=== PATIENT | female | born 1985 | race Caucasian/White ===

== ENCOUNTER 2023-06-15 02:22 | Day surgery (SDC) | payer OTHER, SELFPAY ==
[2023-06-11 09:36] VITALS: BMI 23.8
--- NOTE | 2023-06-11 09:39 | PC.NURSE ---
Report to the Outpatient Waiting Room, entrance under the green pavilion located off [facility], at time 0600 on date 06/15/23. Planned Procedure Time: 0730. Time changes happen often and if your time is changed the preop area will call you the afternoon before. - You and your visitor will be asked to self-screen and do not enter if you have any COVID symptoms. - A mask is optional within the hospital at this time. Patients may have clear liquids (water, carbonated beverages, clear teas, apple juice) until 3 hours prior to surgery with a maximum of 20 ounces. - No food from midnight until time of surgery Take the following medications with a SIP of water the morning of surgery: NONE DO NOT STOP ANY OF YOUR OTHER PRESCRIPTION MEDICATIONS PRIOR TO SURGERY ?EXCEPT THE FOLLOWING Medications to discontinue per physician: N/A Date to take last dose: N/A Please no make-up, nail slovak, hairspray, perfume, deodorant, or body powder the day of surgery. No jewelry (including any body piercings) or valuables the day of surgery, leave them at home. Please take a shower or bath the night before, or the morning of, surgery with an antibacterial soap. Wear comfortable, loose fitting clothing. - Jewelry must be removed prior to entering the operating room. Rings and piercings that are not removed may be cut off. - The hospital will not accept responsibility for valuables. - Please leave all valuables, including medications, at home the day of surgery. If you are going home after surgery, a licensed gas truck driver must drive you home. - NO public transportation without another adult if you receive anesthesia. - We recommend that an adult stay with you for 24 hours following discharge. - We also recommend that you do not drive, make important decision, drink alcoholic beverages, or take any drugs that were not prescribed by your health care provider for at least 24 hours after your discharge time. Follow any additional instructions given to you from your surgeon. If you or anyone in your household have experienced Covid symptoms in the past week, please notify your surgeon or the nurse liaison at the phone number below for possible testing. Telephone instructions given to LORI JAMESON and asked if any additional questions and then verbalized understanding. Patient advised to call surgeon office or pre surgery nurse liaison [phone] if any additional questions.
--- NOTE | 2023-06-14 20:03 | PM.IMHP ---
H&P: HPI History of Present Illness Date/Time: 06/14/23 20:03 Chief Complaint: undesired fertility Narrative: She is a 38 y/o P1 currently using IUD for contraception. She has satisfied parity and request permanent sterilization. She does not want to continue using the IUD. She declines all other nonpermanent forms of contraception. Review of Systems Review of Systems: All systems reviewed & are unremarkable except as noted in HPI and below Cardiovascular: Cardiovascular: Reports no additional cardiovascular complaints, Denies chest pain and Denies dyspnea Respiratory: Respiratory: Reports no additional respiratory complaints and Denies dyspnea Gastrointestinal: Gastrointestinal: Reports abdominal pain, Denies change in bowel habits, Denies diarrhea, Denies nausea and Denies vomiting Genitourinary: Genitourinary: Reports pelvic pain Musculoskeletal: Musculoskeletal: Reports back pain Integumentary/Breasts: Skin/Breast: Reports system reviewed and no additional complaints, except as docu Neurologic: Reports system reviewed and no additional complaints, except as documented PMFSH Social History Social History Smoking packs per day: 0.5 Smoking cigarettes per day: 10.0 Years smoked: 15 Smoking pack-years: 7.50 Smoking status: Current every day smoker Tobacco type: cigarettes Alcohol intake: never Substance use: never Substance use type: does not use Lack of Transportation: No Lack of Food: Never True Current Housing: I Have Housing Concerned About Future Housing: No Difficulty Paying Gas/Electric Bills: No Difficulty Paying for Meds: No Currently Unemployed: No Education: High School Diploma/GED Difficulty w/ Childcare or Family Care: No Living arrangements: with family Occupation/Education: occupation Gender identity (if verbalized by the patient): Female Sexual Orientation (if Verbalized by the Patient): Straight or Heterosexual Spiritual care concerns: No Meds Home Medications and Allergies Home Medications Medication Instructions Recorded Confirmed Type levonorgestrel 21 mcg/24 hours (8 1 device intrauterine ONCE 04/05/23 06/11/23 History yrs) 52 mg intrauterine device (Mirena) Allergies Allergy/AdvReac Type Severity Reaction Status Date / Time No Known Allergies Allergy Mild Verified 06/11/23 09:35 Exam Const: Orientation/consciousness: oriented to person and oriented to place HENMT: Head: normal to inspection Eyes: General: appearance normal, both eyes and all related structures Resp: Effort & Inspection: normal respiratory effort Auscultation: clear to auscultation bilaterally Cardio: Rate: regular rate Rhythm: regular rhythm GI: Inspection: normal to inspection GI Palp: No Rebound tenderness present Neuro: General: oriented to person and oriented to place Cognition (Neuro): normal cognition Extrem: General: normal to inspection Psych: Appearance: grossly normal and well kempt Assessment and Plan Assessment and plan (1) Sterilization: Code(s): Z30.2 - Encounter for sterilization Status: Acute Assessment and Plan: Will proceed with laparoscopic bilateral salpingectomy.
[2023-06-15] VITALS (9 sets, daily range): BP systolic 88–102; BP diastolic 52–71; PULSE 49–81; RESP 12–18; TEMP 36.2–36.6; O2SAT 99–100
[2023-06-15] MEDS: KETOROLAC 15 MG/ML VIAL (*BKC) IV PUSH (06:45)
[2023-06-15] MEDS: LACTATED RINGERS 1,000 ML 30 ML IV CONT ×2 (06:45→08:41)
[2023-06-15] MEDS: ACETAMINOPHEN 500 MG TABLET 1000 MG PO (06:45)
--- NOTE | 2023-06-15 07:09 | P.PNAN_ITS ---
Anes - Initial Pre Proc Eval Procedure: Operation Date: 06/15/23 07:30 Proposed Procedures p Laparoscopic Bilateral Salpingectomy with Intrauterine Device Removal - Tunde Miles MD Date/Time: 06/15/23 07:09 Surgeon: Tunde Miles MD Pre Op Diagnosis: Desire Sterilization Patient Data Age: 38 Gender: F Height: 1.68 m Weight: 67.15 kg Allergies Allergy/AdvReac Type Severity Reaction Status Date / Time No Known Allergies Allergy Mild Verified 06/11/23 09:35 Home Medications Medication Instructions Recorded Confirmed Type levonorgestrel 21 mcg/24 hours (8 1 device intrauterine ONCE 04/05/23 06/11/23 History yrs) 52 mg intrauterine device (Mirena) Patient hx anesthesia problems: none Family hx anesthesia problems: none Results Review: All pre-operative results and documents have been reviewed as part of the pre- operative evaluation. [facility] Social History Social History Smoking packs per day: 0.5 Smoking cigarettes per day: 10.0 Years smoked: 15 Smoking pack-years: 7.50 Smoking status: Current every day smoker Tobacco type: cigarettes Alcohol intake: never Substance use: never Substance use type: does not use Lack of Transportation: No Lack of Food: Never True Current Housing: I Have Housing Concerned About Future Housing: No Difficulty Paying Gas/Electric Bills: No Difficulty Paying for Meds: No Currently Unemployed: No Education: High School Diploma/GED Difficulty w/ Childcare or Family Care: No Living arrangements: with family Occupation/Education: occupation Gender identity (if verbalized by the patient): Female Sexual Orientation (if Verbalized by the Patient): Straight or Heterosexual Spiritual care concerns: No Anes - Eval Final PreProcedure Day of Procedure 06/15/23 07:09 Patient weight: normal Heart: regular rate and rhythm Lungs: clear to auscultation Airway: Mallampati scale class II Neurological: alert and oriented Last oral intake: >/= 8 hours ASA classification: II Emergent: no Anesthetic plan: proceed Anesthesia type and monitoring: general ETT and standard monitoring Results Review: All pre-operative results and documents have been reviewed as part of the pre- operative evaluation. Informed Consent: The patient's anesthetic plan and its attendant risks and benefits were discussed with the patient/family/POA. Questions were solicited and answers provided to the satisfaction of the patient/family/POA.
--- NOTE | 2023-06-15 07:22 | WPDHPUPDATE1 ---
History and Physical Update Update Date/Time: 06/15/23 07:22 History and Physical has been reviewed, including an updated exam of the patient. There are NO changes in the patient's condition. Risks, benefits, and alternatives have been discussed and questions answered. Patient agrees to proceed with procedure.
--- NOTE | 2023-06-15 07:42 | SUR.PREOP ---
IDPA FORM HAS NOT BEEN FILLED OUT CORRECTLY. DELAY IN PROGRESS WE WAIT ON DR TAFOYA TO RETURN TO AREA
[2023-06-15] MEDS: BUPivacaine HCL 0.5% PF 30 ML VIAL 12 ML INFILTRATE (08:06)
--- NOTE | 2023-06-15 08:57 | W.PM.PROC2 ---
Procedure Note - Detailed Date of Procedure 06/15/23 Pre-op Diagnosis Desire Sterilization Post-op Diagnosis Same Procedure Performed 1. laparoscopic bilateral salpingectomy 2. IUD removal Surgeon Tunde Miles MD Anesthesia General Indications Requests permanent sterilization request IUD removal Findings Normal uterus and fallopian tubes and ovaries normal liver edge normal posterior cul-de-sac normal pelvis Description of Procedure After informed consent was obtained patient was taken to the operating room and general endotracheal anesthesia was administered. She was placed in low lithotomy need prep prepped sterile fashion. Attention was turned to the vagina speculum inserted single-tooth tenaculum placed on anterior lip of the cervix. The Mirena IUD was removed with ring forceps intact. No abnormalities noted. IUD was discarded. And acorn uterine manipulator placed into the cervical canal. The speculum was removed. Bladder was drained with a straight cath of 200 cc of yellow urine. Attention was then turned to the abdomen. With sterile gloves a vertical incision was made at the umbilicus and a Veress needle was inserted into the abdomen confirmation into the abdomen obtained with normal peritoneal pressures. A pneumoperitoneum of 15 mm per mercury was obtained. The 5 mm port was inserted under laparoscopic visualization. Patient was placed in Trendelenburg position. Attention was turned to the left side of the abdomen and a 5 mm port was inserted under laparoscopic visualization. Attention was turned to the right side of the abdomen and a 5 mm port was inserted under laparoscopic visualization. The pelvic organs were visualized. Using the LigaSure the right fallopian tube was excised to near the entrance to the uterus. This was removed through the port. Attention was then turned to the left fallopian tube which was grabbed at the distal end. There were mild adhesions to the ovary. The fallopian tube was cauterized from the mesial salpinx to the ampullary region of the fallopian tube. The fallopian tube was removed through the 5 mm port. Hemostasis was noted at both sites. Patient was taken out of Trendelenburg position the pneumoperitoneum was released and the skin incisions were closed in a subcuticular fashion with 4 O Vicryl. Estimated Blood Loss -5.0 Urine Output 200 Drains No Packing No Pathology Yes (Right and left fallopian tube segment) Complications No immediate complications Condition Stable Disposition Same day [facility] Billing Surgery - Charge Forward: Surgery Billing
== END 2023-06-15 10:29 | disposition home or self-care (01) ==
PROVIDERS: PCP Internal Medicine Infectious Disease; Visit Provider Obstetrics & Gynecology
PROC: (CPT 49320; principal; 2023-06-15 07:30)
DX: Z30.2 Encounter for sterilization (principal); Z30.432 Encounter for removal of intrauterine contraceptive device; F17.210 Nicotine dependence, cigarettes, uncomplicated
CPT/HCPCS: 58661; 58301; 88302; A9270; J0330; J1100; J1885; J2250; J2405; J2704; J3010; J7030; J7120

== ENCOUNTER 2023-07-26 14:08 | Emergency (ER) | payer OTHER, SELFPAY ==
[2023-07-26] VITALS (9 sets, daily range): BP systolic 104–117; BP diastolic 66–85; PULSE 58–80; RESP 10–18; TEMP 36.2; O2SAT 99–100
--- NOTE | ~2023-07-26 | XR_ITS ---
EXAMINATION: XR chest 2V 07/26/2023 14:46 INDICATION: Shortness of breath PROCEDURE: 2 view chest COMPARISON: No prior studies for comparison. FINDINGS: The lungs are clear. The cardiomediastinal silhouette is within normal limits. There are no pleural effusions. There is no pneumothorax suspected. IMPRESSION: 1: NO ACUTE CARDIOPULMONARY DISEASE. Reviewed, dictated and finalized at location A.
--- NOTE | ~2023-07-26 | CT_ITS ---
EXAMINATION: CTA chest PE protocol DATE: 07/26/2023 15:20 CDT INDICATION: Chest tightness and shortness of breath. Recent surgery. TECHNIQUE: Computed tomographic angiography (CTA) of the chest was performed with 100 mL Omnipaque-35 0 intravenous contrast. The dose-length product was 194.63 mGy-cm. Maximum intensity projection 3D-re constructions of the aorta and other arteries were constructed by the technologist on a separate work station. Automated exposure control and iterative reconstruction technique were employed. COMPARISON: None. FINDINGS: Heart size normal. No significant pleural or pericardial effusion. Study is technically millie quate without evidence for pulmonary embolism. No thoracic lymphadenopathy. No evidence for aortic an eurysm. Upper abdomen is unremarkable. No focal airspace disease. No endobronchial lesions. No pneumo thorax. No acute bone or joint abnormality. IMPRESSION: 1. No acute cardiopulmonary disease. Reviewed, dictated and finalized at location A.
--- NOTE | 2023-07-26 14:13 | ECG_ITS ---
Measurements Intervals [place] Rate: 74 P: 75 MI: 177 QRS: 74 QRSD: 88 T: 51 QT: 372 QTc: 414 Interpretive Statements SINUS RHYTHM WITH SINUS ARRHYTHMIA BASELINE ARTIFACT- III, AVL NORMAL ECG NO PREVIOUS ECG AVAILABLE FOR COMPARISON Electronically Signed On 07-26-2023 14:29:25 CDT by Hemanth Palacios D.O.
--- NOTE | 2023-07-26 14:36 | ED.SOB ---
HPI - SOB/Dyspnea General Chief Complaint: Shortness of Breath/Dyspnea Stated Complaint: chest tightness, SOB Time Seen by Provider: 07/26/23 14:26 History of Present Illness HPI Narrative: 38-year-old female reports for evaluation for chest tightness and shortness of breath for the past several weeks. Patient states she has had a cough for the past few months. States she had a tubal ligation performed by Dr. Mcmillan on 06/15/2023, and about a week later developed chest tightness and shortness of breath. She states that at times her cough is productive and describes the sputum as stringy and bubbly . She states that her shortness of breath sometimes is worsened when she lays flat. She denies hemoptysis, chest pain, radiation of pain, syncope, abdominal pain, nausea or vomiting, diarrhea, lower extremity edema, history of VTE. Denies history of asthma or diagnosed COPD but does states she has been smoking approximately half a pack a day since she was a teenager. Related Data Allergies Allergy/AdvReac Type Severity Reaction Status Date / Time No Known Allergies Allergy Mild Verified 07/26/23 14:20 Review of Systems Review of Systems: CONSTITUTIONAL: Denies fever, chills EYES: Denies visual changes, redness, or discharge. ENT: Denies rhinorrhea, congestion, sore throat, or otalgia. CARDIOVASCULAR: See HPI RESPIRATORY: See HPI GASTROINTESTINAL: Denies abdominal pain, nausea, vomiting, or diarrhea. GENITOURINARY: Denies dysuria or hematuria. SKIN: Denies rash or itching. MUSCULOSKELETAL: Denies back pain, joint pain, or myalgia. NEUROLOGIC: Denies headache, numbness, dizziness, or weakness. PSYCHIATRIC: Denies anxiety or depression. [facility] Surgical History Surgical History H/O bilateral salpingectomy (~06/15/23) Lap Bilateral salpingectomy and IUD removal. Dr Miles Social History Social History Smoking packs per day: 0.5 Smoking cigarettes per day: 10.0 Years smoked: 15 Smoking pack-years: 7.50 Smoking status: Current every day smoker Tobacco type: cigarettes Alcohol intake: never Substance use: never Substance use type: does not use Lack of Transportation: No Lack of Food: Never True Current Housing: I Have Housing Concerned About Future Housing: No Difficulty Paying Gas/Electric Bills: No Difficulty Paying for Meds: No Currently Unemployed: No Education: High School Diploma/GED Difficulty w/ Childcare or Family Care: No Living arrangements: with family Occupation/Education: occupation Gender identity (if verbalized by the patient): Female Sexual Orientation (if Verbalized by the Patient): Straight or Heterosexual Spiritual care concerns: No Exam Narrative: GENERAL: Well-appearing, in no acute distress. Patient resting comfortably in exam bed. She is pleasant and conversational. HEAD: Normocephalic EYES: PERRLA ENT: Nares clear. Mucous membranes moist. Oropharynx without tonsillar hypertrophy exudate or other lesions. NECK: Supple. CHEST: No respiratory distress. Clear to auscultation, no adventitious breath sounds. Speaking in full sentences. 99% on room air. No labored breathing. HEART: Regular rate and rhythm. No murmur heard. Normal peripheral pulses. ABDOMEN: Soft, nontender, normal active bowel sounds. EXTREMITIES: Normal range of motion. No edema. No tenderness to calves. Negative Homans bilaterally. SKIN: Warm, dry, no rash. NEURO: No focal deficits. Alert and oriented x3. PSYCH: Normal mood and affect. Course Vital Signs Vital signs: Vital Signs Temperature 97.1 F L 07/26/23 14:09 Pulse Rate 76 07/26/23 14:09 Respiratory Rate 18 07/26/23 14:09 Blood Pressure 116/80 07/26/23 14:09 Pulse Oximetry 99 07/26/23 14:09 Oxygen Delivery Room Air 07/26/23 14:09 Temperature 97.1 F L 07/26/23 14:09 Pulse Ra
[2023-07-26 14:41] LABS: Basophils Absolute Auto 0.1 K/mm3 (0.0-0.1); Basophils Percent Auto 0.7 % (0.2-1.2); Eosinophils Absolute Auto 0.7 K/mm3 (0-0.3); Hematocrit 40.2 % (37.0-47.0); Hemoglobin 13.1 g/dL (12.0-15.0); Immature Granulocyte Absolute 0.03 K/mm3 (0.00-0.031); Immature Granulocyte Percent A 0.4 % (0-0.5); Lymphocytes Absolute Auto 3.23 K/mm3 (0.9-3.2); Lymphocytes Percent Auto 39.6 % (18.3-44.2); Mean Corpuscular HGB Conc 32.6 g/dl (32-36); Mean Corpuscular Hemoglobin 31.7 pg (26-34); Mean Corpuscular Volume 97.3 fl (80-100); Mean Platelet Volume 10.7 fl (7.4-10.4); Monocytes Absolute Auto 0.6 K/mm3 (0.1-0.6); Monocytes Percent Auto 7.2 % (2.6-8.5); Neutrophils Absolute Auto 3.6 K/mm3 (1.3-6.7); Neutrophils Percent Auto 44.1 % (45.5-73.1); Platelet Count Result 341 k/mm3 (150-375); Red Blood Count 4.13 M/mm3 (4.2-5.4); Red Cell Distribution Width 12.7 % (11.5-14.5); White Blood Count 8.2 K/mm3 (4.5-10.0)
[2023-07-26] MEDS: ALBUTEROL SULFATE NEB 2.5 MG/3 ML INH INHALATION (14:50)
[2023-07-26] MEDS: IPRATROPIUM BR 0.02% INH SOLN 0.5 MG/2.5 ML VIAL INHALATION (14:50)
[2023-07-26 14:53] LABS: Prothrombin Time 13.6 Seconds (11.1-14.7)
[2023-07-26 14:53] LABS: Alanine Aminotransferase 17 U/L (6-35); Albumin Level 4.5 g/dL (3.5-5.1); Alkaline Phosphatase 73 U/L (38-126); Anion Gap 8 mmol/L (8-16); Aspartate Amino Transferase 24 U/L (14-36); Bilirubin,Total 0.8 mg/dL (0.2-1.3); Blood Urea Nitrogen 12 mg/dL (7-17); Calcium 9.3 mg/dL (8.4-10.2); Carbon Dioxide 24 mmol/L (22-30); Chloride 106 mmol/L (98-107); Estimated CRCL calculation 77 ml/min; Estimated Glomerular Filt Rate > 60; Glucose 92 mg/dL (65-110); Potassium 3.6 mmol/L (3.4-5.0); Sodium 138 mmol/L (137-145)
[2023-07-26 14:54] LABS: Partial Thromboplastin Time 31.7 SECONDS (22.3-36.8)
[2023-07-26 15:13] LABS: Magnesium 2.1 mg/dL (1.6-2.3)
[2023-07-26 15:27] LABS: NT Pro B Type Natriuretic Pept 117 pg/mL (19.9-100); Troponin I < 0.012 ng/mL (0.000-0.034)
[2023-07-26] MEDS: methylPREDNISolone SOD SUCC 125 MG VIAL IV PUSH (16:07)
== END 2023-07-26 16:40 | disposition home or self-care (01) ==
PROVIDERS: Family Medicine; Emergency Provider Physician Assistant; PCP Internal Medicine Infectious Disease
DX: J40 Bronchitis, not specified as acute or chronic (principal); R07.89 Other chest pain; R06.00 Dyspnea, unspecified; F17.210 Nicotine dependence, cigarettes, uncomplicated; Z90.79 Acquired absence of other genital organ(s)
CPT/HCPCS: 36415; 71046; 71275; 80053; 83735; 83880; 84484; 85025; 85610; 85730; 93005; 94640; 96374; 99284; J2930; Q9967

== ENCOUNTER 2024-02-06 12:09 | Outpatient (CLI) | payer OTHER, SELFPAY ==
--- NOTE | ~2024-02-06 | CT_ITS ---
CT Scan of the Neck and Chest without Contrast: Clinical Indication: Cough Technique: Contiguous sections were acquired throughout the An chest without intravenous contrast. Dose reduction technique was used on this scan by utilizing au tomated exposure control and iterative reconstruction technique. The dose-length product (DLP) was 61 6.25 mGy-cm. Findings: There is suggestion of asymmetric fullness of the deep portion of the right parotid gland a s compared to the left, though no definite mass lesion identified. Parapharyngeal fat preserved bilat erally. No lymphadenopathy seen. Submandibular glands are unremarkable. Visualized aerodigestive trac t otherwise unremarkable. Thyroid gland essentially unremarkable. There is no evidence of any significant mediastinal, hilar or axillary lymphadenopathy. The mediastin al soft tissues appear normal. There is no evidence of pleural or pericardial effusion. The lungs are clear. No pulmonary nodules or infiltrates are noted. Images through the upper abdomen reveal no abnormalities. Impression: Suggestion of asymmetric fullness of the deep portion of the right parotid gland as compared to the l eft, though no well-defined mass lesion identified. Consider follow-up MR to further assess, if clini nemesio indicated. No other significant findings. Reviewed, dictated and finalized at location . Impression: Suggestion of asymmetric fullness of the deep portion of the right parotid glan d as compared to the left, though no well-defined mass lesion identified. Consi adrienne follow-up MR to further assess, if clinically indicated. No other significant findings.
--- NOTE | 2024-02-06 16:51 | P.PCNPFT_ITS ---
PFT Procedure Performed PFT Procedure Performed Spirometry with Pre/Post Bronchodilator Plethysmography (Lung Vol) Diffusing Cap (DLCO) Flow Vol Loop PFT Interpretation This is a pulmonary function test with pre and post-bronchodilator spirometry, plethysmography and diffusing capacity. The test was performed and results interpreted in accordance with the 2019 and 2005 ATS/ERS Task Force guidelines respectively using the Global Lung Function Initiative-2012 reference equations. Patient demonstrated good effort and cooperation. Reproducibility criteria were met. The quality of the pre bronchodilator spirometry maneuver was Grade B and post bronchodilator spirometry maneuver was Grade A. Findings: Spirometry: There is decreased maximal expiratory airflow at all lung volumes with concave expiratory flow tracing. The contour the inspiratory flow tracing is normal. The pre bronchodilator FVC is 4.52 L, 113% predicted. The pre bronchodilator FEV1 is 2.46 L, 75% predicted. The pre bronchodilator FEV1: FVC ratio is 54%. The post bronchodilator FVC is 4.19 L, representing a 7% decrease. The post bronchodilator FEV1 is 2.08 L, representing a 15% decrease. The post bronchodilator FEV1: FVC ratio is 50%. Plethysmography: The total lung capacity is 5.37 L, 100% predicted. The functi onal residual capacity is 2.83 L, 95% predicted. The residual volume is 0.85 L, 51% predicted. Diffusing capacity: The diffusing capacity unadjusted for hemoglobin and carboxyhemoglobin is 23.9, 97% predicted. The diffusing capacity adjusted for alveolar volume is 4.51, 96% predicted. Impression: There is a mild obstructive abnormality. There is no significant improvement after inhaling a single dose of albuterol. The total lung capacity and functional residual capacity are normal with a decreased residual volume. This is an abnormal but nonspecific lung volume pattern. The diffusing capacity is normal. There are no prior studies for comparison
== END 2024-02-06 12:10 | disposition home or self-care (01) ==
PROVIDERS: PCP Internal Medicine; Visit Provider Physician Assistant
DX: R05.9 Cough, unspecified (principal); R94.2 Abnormal results of pulmonary function studies
CPT/HCPCS: 70490; 71250; 94060; 94726; 94729